=== PATIENT | female | born 1950 | race Hispanic/Latino ===

== ENCOUNTER 2020-02-12 12:54 | Emergency (ER) | payer OTHER, MEDICARE ==
[2020-02-12] MEDS ORDERED: ORPHENADRINE CITRATE 30 MG/ML ML ONE (13:03)
[2020-02-12] MEDS ORDERED: KETOROLAC TROMETHAMINE 15MG/ML ONE (13:04)
[2020-02-12] MEDS ORDERED: LIDOCAINE 5% TOPICAL PATCH TP ONE (14:56)
== END 2020-02-12 16:00 | disposition home or self-care (01) ==
LOC: EDH 12:54
DX: S70.01XA Contusion of right hip, initial encounter (principal); I10 Essential (primary) hypertension; E78.00 Pure hypercholesterolemia, unspecified; W18.39XA Other fall on same level, initial encounter; Y93.89 Activity, other specified; Y92.89 Other specified places as the place of occurrence of the external cause; Y99.8 Other external cause status
CPT/HCPCS: 72100; 96374; 96375; 99283; J1885; J2360